=== PATIENT | male | born 1980 | race Caucasian/White ===

== ENCOUNTER 2019-05-19 10:14 | Emergency (ER) | payer BC ==
--- NOTE | 2019-05-19 10:42 | EDM.PDOC ---
ED [facility] GENERAL MEDICAL PROBLEM - General Chief Complaint: Lower Extremity Injury/Pain Stated Complaint: left ankle Time Seen by Provider: 05/19/19 10:30 Source of Information: Reports: Patient History Limitations: Reports: No Limitations - History of Present Illness INITIAL COMMENTS - FREE TEXT/NARRATIVE: Patient comes into the emergency department with complaint of left ankle pain. Patient states that he was walking down snow-covered steps and missed stepped causing him to fall. He denies hitting his head or injuring any other extremity other than his left ankle. He did feel a popping sensation. He states that he was unable to bear weight initially due to the pain and discomfort. He did present to the emergency Department right away for further evaluation regarding this or extremity injury. Patient denies ever having any injury to that extremity before. Onset: Sudden Quality: Reports: Sharp, Throbbing Severity: Moderate Improves with: Reports: Immobilization Worsens with: Reports: Movement Context: Reports: Activity Associated Symptoms: Reports: No Other Symptoms Left Ankle Pain Score (Numeric/FACES): 8 - Related Data Allergies Allergy/AdvReac Type Severity Reaction Status Date / Time No Known Allergies Allergy Verified 05/19/19 10:36 Home Meds: Home Meds Ketorolac [Toradol] 10 mg PO TID PRN #15 tab 05/19/19 [Rx] oxyCODONE 5 mg PO Q4HR PRN #15 tab 05/19/19 [Rx] Review of Systems - Review of Systems Review Of Systems: Comprehensive ROS is negative, except as noted in HPI. Constitutional: Reports: No Symptoms Eyes: Reports: No Symptoms Ears: Reports: No Symptoms Nose: Reports: No Symptoms Mouth/Throat: Reports: No Symptoms Respiratory: Reports: No Symptoms Cardiovascular: Reports: No Symptoms GI/Abdominal: Reports: No Symptoms Genitourinary: Reports: No Symptoms Musculoskeletal: Reports: No Symptoms Skin: Reports: No Symptoms ED EXAM, GENERAL - Physical Exam Exam: See Below Exam Limited By: No Limitations General Appearance: Alert, WD/WN, No Apparent Distress Respiratory/Chest: No Respiratory Distress, Lungs Clear, Normal Breath Sounds Cardiovascular: Normal Peripheral Pulses, Regular Rate, Rhythm, No Edema Peripheral Pulses: 4+: Radial (L), Radial (R), Dorsalis Pedis (L), Dorsalis Pedis (R) Extremities: No Pedal Edema, Normal Capillary Refill, Leg Pain (left ankle moderate swelling, tenderness upon palpation. limited ROM in all areas. CMS intact ) Neurological: Alert, Oriented, Normal Gait Psychiatric: Normal Affect, Normal Mood Skin Exam: Warm, Dry, Intact Course - Vital Signs Last Recorded V/S: Last Vital Signs Temp 36.8 C 05/19/19 10:20 Pulse 90 05/19/19 10:20 Resp 16 05/19/19 10:20 BP 112/64 05/19/19 10:20 Pulse Ox 98 05/19/19 10:20 - Orders/Labs/Meds Orders: Active Orders 24 hr Category Date Time Status Splinting [RC] ASDIRECTED Care 05/19/19 11:06 Active Meds: Medications Discontinued Medications Generic Name Dose Route Start Last Admin Trade Name Freq PRN Reason Stop Dose Admin Oxycodone/Acetaminophen 1 tab 05/19/19 11:06 05/19/19 11:22 Percocet 325-5 Mg PO 05/19/19 11:07 1 tab ONETIME ONE Administration Departure - Departure Time of Disposition: 11:30 Disposition: Home, Self-Care 01 Condition: Good Clinical Impression: Closed fracture of left distal fibula Qualifiers: Encounter type: initial encounter Fracture morphology: other fracture Qualified Code(s): S82.832A - Other fracture of upper and lower end of left fibula, initial encounter for closed fracture - Discharge Information *PRESCRIPTION DRUG MONITORING PROGRAM REVIEWED*: Not Applicable *COPY OF PRESCRIPTION DRUG MONITORING REPORT IN PATIENT ISAC: Not Applicable Prescriptions: oxyCODONE 5 mg PO Q4HR PRN #15 tab PRN Reason: Pain Ketorolac [Toradol] 10 mg PO TID PRN #15 tab PRN Reason: Pain Instructions: RICE Therapy for Routine Care of Injuries, [id number], Oxycodone tablets or capsules, Cast or Splint Care, Adult Referrals: PCP,Not In Area [Primary Care Provider] - Forms: ED Department Discharge Additional Instructions: 1. rest 2. increase water intake 3. Wear cam-boot and use crutches at all times other than to shower 4. Remain non-weightbearing until orthopedic clears 5. Take one oxycodone 1 tab every 4 hours as needed for severe pain 6. Can take Toradol as needed every 6 hours 7. elevate the extremity to reduce the swelling 8. Follow up with orthopedic Dr. [place] [facility]. [phone] to schedule an appointment for further evaluation and medical/surgical management 9. Call with any questions or concerns Sepsis Event Note - Evaluation Sepsis Screening Result: No Definite Risk - Focused Exam Vital Signs: Vital Signs Temp Pulse Resp BP Pulse Ox 05/19/19 10:20 36.8 C 90 16 112/64 98 Date Exam was Performed: 05/19/19 Time Exam was Performed: 11:27 - My Orders Last 24 Hours: My Active Orders 05/19/19 11:06 Splinting [RC] ASDIRECTED - Assessment/Plan Last 24 Hours: My Active Orders 05/19/19 11:06 Splinting [RC] ASDIRECTED Assessment:: 1. left ankle pain 2. Left distal fibular fracture Plan: 1. xray of left ankle completed in ER. Results reviewed with the pt. 2. [place] applied to left ankle, with crutches 3. Consult with [facility] [place] [facility] surgeon who suggest 4. Education regarding non weight bearing, pain medications, OTC medications, splint use, and follow up care provided 5. All questions and concerns addressed prior to discharge.
--- NOTE | 2019-05-19 10:53 | CR ---
[id number] RAD/RAD Ankle Left 3V Min Exam: RAD Ankle Left 3V Min Indication:FALL. Comparison: No prior imaging for comparison. Discussion: Acute minimally displaced obliquely orientated fracture of the distal fibular metaphysis. Fracture line extends into the lateral gutter of the ankle mortise. However no radiographic evidence of instability. No other fractures are identified. Impression: Acute obliquely orientated minimally displaced distal fibular metaphysis fracture. Bhaskar Plasencia MD 05/19/19 1052 Thank you for allowing us to participate in the care of your patient.
[2019-05-19] MEDS ORDERED: Acetaminophen/oxyCODONE 325-5 MG Tab PO ONE (11:06)
== END 2019-05-19 11:31 | disposition home or self-care (01) ==
LOC: EDBD 10:14 → VM.ED 10:14
DX: S82.832A Other fracture of upper and lower end of left fibula, initial encounter for closed fracture (principal); W10.8XXA Fall (on) (from) other stairs and steps, initial encounter; Y93.01 Activity, walking, marching and hiking
CPT/HCPCS: 73610; 99283; A9270